=== PATIENT | male | born 1930 | race Caucasian/White ===

== ENCOUNTER 2017-07-05 16:51 | Inpatient (IN) | payer MEDICARE, OTHER ==
[2017-07-05 18:10] LABS: #Basophils 0.1 thou/uL (0.0-0.2); #Eosinphils 0.1 thou/uL (0.0-0.7); #Lymphocytes 1.1 thou/uL (1.20-3.40); #Monocytes 0.8 thou/uL (0.11-0.59); #Neutrophils 3.7 thou/uL (1.40-6.50); %Basophils 1.3 % (0.0-1.0); %Eosinophils 1.8 % (0.0-10.0); %Lymphocytes 18.5 % (21.0-51.0); %Monocytes 13.5 % (0.0-10.0); %Neutrophils 64.9 % (42.0-75.0); Hemoglobin 13.4 g/dL (14.0-18.0); Mean Corpuscular Hemoglobin 30.9 pg (27.0-31.0); Mean Corpuscular Volume 88.3 fl (80.0-94.0); Mean Platelet Volume 8.2 fL (7.4-10.4); Platelet Count 151 thou/uL (130-400); RBC Distribution Width 12.8 % (11.5-14.5); Red Blood Cell (RBC) Count 4.34 mill/uL (4.70-6.10); White Blood Cell (WBC) Count 5.7 thou/uL (4.8-10.8)
[2017-07-05 18:31] LABS: ALT (SGPT) 19 U/L (8-55); AST (SGOT) 32 U/L (5-34); Albumin 3.8 g/dL (3.4-4.8); Alkaline Phosphatase 93 U/L (40-150); Anion Gap 14 mmol/L (10-20); BUN (Urea Nitrogen) 60 mg/dL (8.4-25.7); Bilirubin, Total 1.5 mg/dL (0.2-1.2); Calc. Creatinine Clearance 0 mL/min (70-130); Calcium 8.8 mg/dL (7.8-10.44); Carbon Dioxide 35 mmol/L (23-31); Chloride 78 mmol/L (98-107); Estimated GFR-MDRD 39; Globulin 2.7 g/dL (2.4-3.5); Glucose 127 mg/dL (83-110); Potassium 3.7 mmol/L (3.5-5.1); Protein, Total 6.5 g/dL (5.8-8.1); Sodium 123 mmol/L (136-145)
[2017-07-05 19:45] LABS: Magnesium 2.2 mg/dL (1.6-2.6); Phosphorus 4.3 mg/dL (2.3-4.7)
[2017-07-05] MEDS ORDERED: Morphine 4 MG/ML VIAL ONE (19:53)
[2017-07-05] MEDS ORDERED: Ondansetron ODT 4 MG TAB ONE (19:53)
[2017-07-05 19:55] LABS: Troponin I 0.032 ng/mL (< 0.028)
--- NOTE | 2017-07-05 20:08 | RAD ---
CHEST TWO VIEW: 07/05/17 HISTORY: Questionable CHF. COMPARISON: Chest radiograph 07/14/16. FINDINGS: The lungs are clear. No pneumothorax or effusion. The cardiac silhouette and mediastinal contours are within normal limits. Dense calcifications in the aorta. Dorsal column stimulator is in place. Dural lead pacer is present. IMPRESSION: No evidence for acute decompensated CHF. POS: MARINO
[2017-07-05 20:22] LABS: Thyroid Stimulating Hormone 2.6801 uIU/mL (0.35-4.94)
[2017-07-05 20:28] LABS: Bilirubin Negative (Negative); Blood, Urine Negative (Negative); Clarity CLEAR (Clear); Glucose, Urine (Dipstick) Negative (Negative); Leukocyte Negative (Negative); Nitrite Negative (Negative); Protein, Urine (Dipstick) Negative (Neg-Trace); Specific Gravity, Urine 1.009 (1.002-1.036)
[2017-07-05 20:36] LABS: Osmolality, Urine 257 mOsm/kg (300-900)
[2017-07-05] MEDS ORDERED: Nitroglycerin 0.4 MG TAB (25 Tab Bottle) PO PRN (21:29)
[2017-07-05] MEDS ORDERED: Acetaminophen 325 MG TAB PO PRN (21:41)
[2017-07-05] MEDS ORDERED: Ondansetron HCl/PF 4 MG/2 ML Vial IVP PRN (21:41)
[2017-07-05] MEDS ORDERED: Ondansetron ODT 4 MG TAB PO PRN (21:41)
[2017-07-05] MEDS ORDERED: Senokot 8.6 MG TAB PO PRN (21:41)
[2017-07-05] MEDS ORDERED: Calcium Carbonate 500 MG ChewTAB PO PRN (21:41)
[2017-07-05] MEDS ORDERED: Dextrose 5% in Water 1,000 ML IV PRN (22:13)
[2017-07-05] MEDS ORDERED: Insulin Regular 300 UNITS/3 ML VIAL SC PRN (22:13)
[2017-07-05] MEDS ORDERED: Dextrose 50% Abboject 50 ML SYRINGE SLOW IVP PRN (22:13)
--- NOTE | 2017-07-05 22:13 | HP ---
DATE OF ADMISSION: 07/05/2017 PRIMARY CARE PHYSICIAN: [facility]. PRIMARY BILINGUAL INSIDE SALES REPRESENTATIVE: Dr. Chairez. CHIEF COMPLAINT: Generalized weakness/abnormal labs. HISTORY OF PRESENT ILLNESS: Patient is an 87-year-old male with coronary artery disease, congestive heart failure, hypertension, diabetes mellitus type 2, status post pacemaker in 2017 presented to the emergency room with generalized weakness and fatigue. Patient was evaluated by Dr. Contreras solis. He had routine labs that was consistent with hyponatremia with sodium of 119. He was advised to come to the emergency room for evaluation. Over the last two weeks, patient developed gradual worsening shortness of breath along with leg swell ing. He normally takes Lasix 40 mg twice a day. He called Dr. Chairez who increased his Lasix to 80 mg twice a day. Over the last 3 days, he has been taking Lasix 80 mg twice a day along with metolazo ne. His leg swelling has somewhat improved. However, over the last 24-48 hours, patient has been fe eling lightheaded, dizzy with generalized weakness. He had a near syncopal episode earlier today. H e had one episode of vomiting yesterday. PAST MEDICAL HISTORY: 1. Coronary artery disease, status post stent placement. 2. Ascending aortic aneurysm. 3. Status post pacemaker for sick sinus syndrome. 4. Diabetes mellitus, type 2. 5. Hypertension. 6. Hyperlipidemia. 7. Chronic pain syndrome. PAST SURGICAL HISTORY: 1. Pacemaker placement. 2. Colon cancer resection. 3. Prostate cancer resection. 4. Appendectomy. 5. Hip replacement. 6. Knee replacement. 7. Coronary stent placement. 8. Spine nerve stimulator. ALLERGIES: IBUPROFEN. CURRENT HOME MEDICATIONS: To be verified. Patient takes aspirin 81 mg daily, lisinopril, Lasix as d iscussed above, Lyrica, and hydrocodone. Other home medications to be confirmed. SOCIAL HISTORY: Patient currently lives at home. He is a former tobacco user, no alcohol or drug us e. He is FULL CODE, makes his own decision with the help of his family. FAMILY HISTORY: Negative for premature coronary artery disease. REVIEW OF SYSTEMS: The following complete review of systems was negative, unless otherwise mentioned in the HPI or below: Constitutional: Weight loss or gain, ability to conduct usual activities. Sk in: Rash, itching. Eyes: Double vision, pain. ENT/Mouth: Nose bleeding, neck stiffness, pain, te nderness. Cardiovascular: Palpitations, dyspnea on exertion, orthopnea. Respiratory: Shortness of breath, wheezing, cough, hemoptysis, fever, or night sweats. Gastrointestinal: Poor appetite, abdo lisa pain, heartburn, nausea, vomiting, constipation, or diarrhea. Genitourinary: Urgency, frequen cy, dysuria, nocturia. Musculoskeletal: Pain, swelling. Neurologic/Psychiatric: Anxiety, depressi on. Allergy/Immunologic: Skin rash, bleeding tendency. PHYSICAL EXAMINATION: VITAL SIGNS: Temperature 97.4 with respirations of 18, pulse rate of 72, blood pressure of 95/51 wit h O2 saturation 94% on room air. GENERAL: An 87-year-old male with generalized weakness. He denies any chest pain, shortness of alex th. HEENT: Head atraumatic, normocephalic. Sclerae anicteric. Moist mucous membranes. No oral lesion. NECK: Supple, no JVD appreciated. No carotid bruit. LUNGS: Essentially clear to auscultation bilaterally with scattered rales at bases. No wheezing or rhonchi. HEART: S1, S2 present. Regular rate and rhythm, 2/6 systolic murmur over the mitral area. ABDOMEN: Soft, nontender, bowel sounds present. EXTREMITIES: 3+ edema in bilateral lower extremities. No calf tenderness. SKIN: Warm and dry. LYMPH NODES: No palpable lymph nodes in the neck. PERIPHERAL VASCULAR: Radial pulses palpable bilaterally. MUSCULOSKELETAL: No joint swelling or tenderness. SKIN: Warm and dry. LYMPH NODES: No palpable lymph nodes in the neck. LABORATORY DATA: Sodium earlier today was 119 in the emergency room was 123, creatinine was 1.68 wit h BUN 60, total bilirubin 1.5. BNP was 202 with troponin of 0.032. Serum osmolarity 275. Urine osm olality 257. Urinalysis was negative. CBC showed WBC 5.7 with hemoglobin 13.4. Telemetry monitoring by my review showed paced rhythm. Chest x-ray by my review was negative for infiltrate or edema. IMPRESSION AND PLAN: 1. Hypotonic hyponatremia with acute kidney injury secondary to diuresis. 2. Elevated troponins secondary to congestive heart failure. 3. Abnormal liver function tests, probably secondary to passive hepatic congestion. Please note juan t patient has chronically elevated bilirubin. 4. Chronic pain syndrome. 5. Diabetes mellitus, type 2. 6. Hypertension. 7. Coronary artery disease, status post stent placement. 8. Chronic pain syndrome with spine nerve stimulator. 9. Hyperlipidemia. 10. Sick sinus syndrome, status post pacemaker. PLAN: Patient will be monitored on the telemetry unit. We will start him on gentle IV hydration. C ardiology, Dr. Chairez will be consulted. We will repeat the labs in the morning. We will hold Lasix for now. We will also hold lisinopril for now due to low blood pressure. Start him on sliding scal e. [employer] pacemaker interrogation. Plan of care was discussed with the patient and the family in detail. They stated understanding.
[2017-07-06 00:31] VITALS: BMI 34.0
[2017-07-06 00:53] LABS: Sodium, Urine 29 mmol/L (Not Available)
[2017-07-06] MEDS: Sodium Chloride 0.9% 1,000 ML IV SCH ×2 (01:35→22:10)
[2017-07-06 06:22] LABS: Anion Gap 12 mmol/L (10-20); BUN (Urea Nitrogen) 49 mg/dL (8.4-25.7); Calc. Creatinine Clearance 81 mL/min (70-130); Calcium 8.6 mg/dL (7.8-10.44); Carbon Dioxide 32 mmol/L (23-31); Chloride 85 mmol/L (98-107); Estimated GFR-MDRD 66; Glucose 133 mg/dL (83-110); Potassium 3.5 mmol/L (3.5-5.1); Sodium 125 mmol/L (136-145)
[2017-07-06 06:28] LABS: Troponin I 0.022 ng/mL (< 0.028)
[2017-07-06] MEDS ORDERED: Levofloxacin 500 mg/D5W 100 ml Premix Bag ONE (09:39)
[2017-07-06] MEDS ORDERED: metroNIDAZOLE 500 MG/100 ML BAG ONE (09:40)
[2017-07-06] MEDS ORDERED: Morphine 4 MG/ML VIAL ONE (10:29)
[2017-07-06 13:23] LABS: Anion Gap 9 mmol/L (10-20); BUN (Urea Nitrogen) 47 mg/dL (8.4-25.7); Calc. Creatinine Clearance 80 mL/min (70-130); Calcium 8.8 mg/dL (7.8-10.44); Carbon Dioxide 34 mmol/L (23-31); Chloride 89 mmol/L (98-107); Estimated GFR-MDRD 65; Glucose 116 mg/dL (83-110); Potassium 3.9 mmol/L (3.5-5.1); Sodium 128 mmol/L (136-145)
[2017-07-06] MEDS ORDERED: Aspirin 81 mg Enteric Coated Tablet PO SCH (17:30)
[2017-07-06] MEDS: Insulin Regular 300 UNITS/3 ML VIAL SC PRN (17:43)
[2017-07-06] MEDS ORDERED: Pregabalin 75 MG CAP PO SCH (21:00)
--- NOTE | 2017-07-06 22:29 | CON ---
DATE OF CONSULTATION: 07/06/2017 INDICATION FOR CONSULTATION: An 87-year-old gentleman with a history of congestive heart failure lori seaman I believe is diastolic dysfunction. He has had a pacemaker insertion. He was seen in the office yesterday. He has been complaining of lower extremity edema and his Lasix had previously been incre ased, but he had had some studies done yesterday, which showed that he was hyponatremic, the Lasix up d subsequently been decreased, and he was then sent to the emergency room due to the hyponatremia, so dium level was less than 120. He has been complaining of some lethargy, but no shortness of breath, but no chest pain. He is now being admitted for further evaluation and treatment. PAST MEDICAL HISTORY: Significant for diabetes, hypercholesterolemia, hypertension. He has had a he rnia repair. He had a pacemaker insertion knee replacement. He has had a left heart catheterization in 02/2016 with stent placement. He has had a hernia repair as well as a hip replacement. ALLERGIES: None. FAMILY HISTORY: Noncontributory. SOCIAL HISTORY: He lives with his family. He has no history of alcohol or tobacco abuse. He did sm eladio in the past. REVIEW OF SYSTEMS: He had no new HEENT complaints, visual changes or hearing loss. He has had no co mplaints of significant shortness of breath or dyspnea. He has had occasional palpitations, but no c hest pain, no nausea, vomiting or diarrhea. : No dysuria, polyuria, or hematuria. Musculoskeleta l: He has lower extremity edema. Neurologic: Only the fatigue, but no significant seizures or sync ope. PHYSICAL EXAMINATION: GENERAL: Reveals a well-developed, well-nourished gentleman, who is in no acute distress at this [facility]. He is alert and oriented. VITAL SIGNS: Blood pressure is 104/54. History in the emergency room, blood pressure was low as 99/ 55, heart rate is 70 and shows atrial pacing and ventricular sensing. Respiratory rate 15. He is af ebrile. HEENT: Reveals the head to be normocephalic, atraumatic. Carotid pulses are present. I did not hea r any bruits. CHEST: Clear to auscultation without rales, rhonchi, or wheezing. CARDIOVASCULAR: Exam reveals a regular rhythm at this time, monitoring shows he is pacing. CARDIOVASCULAR: Reveals a regular rhythm. No significant murmurs, heaves, thrills, bruits, or rubs are noted. ABDOMEN: Shows obesity with positive bowel sounds. No guarding or masses are noted. Femoral pulses are present. EXTREMITIES: Showed no clubbing or cyanosis. He had minimal lower extremity edema. I cannot palpat e pedal pulses. Popliteal pulses are barely palpable. He has discoloration of the left lateral lowe r leg. NEUROLOGIC: The patient appears to be intact. LABORATORY DATA: Shows hemoglobin 13.4, platelet count 151,000. His sodium on admission yesterday w as 123. This is now increased up to 128, blood sugar is 116. BNP was 202. Creatinine is 1.08 with a BUN of 47. Chest x-ray shows a pacemaker insertion without any significant abnormalities and no ev idence of congestive heart failure. IMPRESSION: 1. Elderly gentleman with a history of congestive heart failure in the past, which has been diastoli c in nature, who has been treated with diuretics and has now hyponatremic. We will need to fluid res trict the patient. The patient did admit that he has been drinking increased amounts of fluid while taking the Lasix that suspect he has diluted out after losing his electrolytes of urination and then replacing that with water. We will just need to fluid restrict him and I suspect the sodium will ret urn up to baseline and to normal. In the future, he will need to be volume restricted and will brittni nue low dose of diuretics. 2. History of pacemaker insertion. This was interrogated today. The function is normal. 3. History of diabetes. This will also need to be followed and will be dealt with by the primary ca re physicians. 4. History of hypertension, some good control at this on the low salt. 5. Chronic back pain. He would need to resume his medications. 6. History of coronary artery disease status post angioplasty and stent placement. This remains sta ble at this time. I will review his home medications and I will reinstate what he needs at this time . In the future, once his electrolytes and blood pressure stabilized, then we can most likely resume his previous medications.
--- NOTE | 2017-07-06 22:35 | PDOC.PN ---
- Subjective Encounter Start Date: 07/06/17 Encounter Start Time: 17:30 Patient seen and examined for Hyponatremia. No new complaints. No overnight events - Objective Resuscitation Status: Resuscitation Status FULL:Full Resuscitation MAR Reviewed: Yes Vital Signs & Weight: Vital Signs (12 hours) Temp Pulse Resp BP BP Pulse Ox 07/06/17 20:28 98 F 71 16 96 07/06/17 20:00 98 F 71 16 116/68 96 07/06/17 16:00 97.9 F 70 20 141/60 H 97 07/06/17 12:00 97.7 F 67 20 126/60 97 Weight Weight 250 lb 12.8 oz I&O: 07/05/17 07/06/17 07/07/17 06:59 06:59 06:59 Intake Total 260 1450 Output Total 1625 450 Balance -1365 1000 Result Diagrams: 07/05/17 17:59 07/07/17 05:29 Additional Labs: Accuchecks 07/06/17 07/06/17 07/06/17 20:47 16:53 12:00 POC Glucose 265 H 173 H 139 H 07/06/17 06:18 POC Glucose 147 H EKG Reviewed by me: Yes (Tele paced) Phys Exam - Physical Examination Constitutional: NAD Neck: no JVD Respiratory: no wheezing, no rhonchi Scat rales at bases, Symmetrical, No accessory muscle use Cardiovascular: RRR, no rub no heaves/pulsations Gastrointestinal: soft, non-tender, no distention, positive bowel sounds Musculoskeletal: pulses present, edema present Neurological: non-focal, moves all 4 limbs Psychiatric: A&O x 3 Dx/Plan (1) Hyponatremia with decreased serum osmolality Code(s): E87.1 - HYPO-OSMOLALITY AND HYPONATREMIA Status: Acute Plan: DC IVF, Monitor soidium twice daily, Diuretics on hold Comment: improving (2) LARISA (acute kidney injury) Code(s): N17.9 - ACUTE KIDNEY FAILURE, UNSPECIFIED Status: Acute Plan: as above Comment: Renal function improving (3) Chronic diastolic heart failure Code(s): I50.32 - CHRONIC DIASTOLIC (CONGESTIVE) HEART FAILURE Status: Chronic (4) DM2 (diabetes mellitus, type 2) Status: Chronic Plan: Cont sliding scale with home meds (5) HTN (hypertension) Code(s): I10 - ESSENTIAL (PRIMARY) HYPERTENSION Status: Chronic Plan: Cont Lisinopril (6) CAD (coronary artery disease) Code(s): I25.10 - ATHSCL HEART DISEASE OF [place] CORONARY ARTERY W/O ANG PCTRS Status: Chronic Plan: Cont ASA and other meds as below (7) Other chronic problems Status: Chronic Comment: - Elevated troponins secondary to congestive heart failure. - Abnormal liver function tests, probably secondary to passive hepatic congestion. Please note that patient has chronically elevated bilirubin. - Chronic pain syndrome with spine nerve stimulator. - Hyperlipidemia. - Sick sinus syndrome, status post pacemaker. - Obesity BMI 32.2 - Plan DVT proph w/SCDs Review of Systems - Review of Systems Respiratory: negative: Cough, Dry, Shortness of Breath, Hemoptysis, SOB with Excertion, Pleuritic Pain, Sputum, Wheezing Cardiovascular: negative: chest pain, palpitations, orthopnea, paroxysmal nocturnal dyspnea, edema, light headedness, other - Medications/Allergies Allergies/Adverse Reactions: Allergies Allergy/AdvReac Type Severity Reaction Status Date / Time ibuprofen [From Motrin] Allergy Rash Verified 07/06/17 00:22 Medications: Current Medications Acetaminophen (Tylenol) 650 mg PO Q4H PRN PRN Reason: Headache/Fever or Pain Aspirin (Ecotrin) 81 mg PO DAILY ALLIE Atorvastatin Calcium (Lipitor) 40 mg PO DAILY ALLIE Calcium Carbonate (Tums) 1,000 mg PO Q4H PRN PRN Reason: Heartburn or Indigestion Dextrose/Water (Dextrose 50%) 25 gm SLOW IVP PRN PRN PRN Reason: Hypoglycemia Glucagon (Glucagon) 1 mg IM PRN PRN PRN Reason: Hypoglycemia Dextrose/Water (D5w) 1,000 mls @ 0 mls/hr IV .Q0M PRN; As Directed PRN Reason: Hypoglycemia Insulin Human Regular (Humulin R) 0 units SC .MILD SLIDING SCALE PRN PRN Reason: Mild Correctional Scale Last Admin: 07/06/17 17:43 Dose: 2 unit Insulin Human Regular (Humulin R) 0 units SC .BEDTIME SLIDING SC PRN PRN Reason: Bedtime Correctional Scale Last Admin: 07/06/17 21:32 Dose: 3 unit Lisinopril (Zestril) 10 mg PO DAILY ALLIE Nateglinide (Starlix) 120 mg PO TID-WM ALLIE Nitroglycerin (Nitrostat) 0.4 mg PO Q5MIN PRN PRN Reason: Chest Pain Non-Formulary Medication (Metformin Hcl [Metformin Hcl]) 1,000 mg PO BID [facility] Ondansetron HCl (Zofran Odt) 4 mg PO Q6H PRN PRN Reason: Nausea/Vomiting Ondansetron HCl (Zofran) 4 mg IVP Q6H PRN PRN Reason: Nausea/Vomiting Pregabalin (Lyrica) 300 mg PO QPM [facility] Last Admin: 07/06/17 20:27 Dose: 300 mg Senna (Senokot) 2 tab PO HSPRN PRN PRN Reason: Constipation Sodium Chloride (Flush - Normal Saline) 10 ml IVF Q12HR [facility] Last Admin: 07/06/17 20:28 Dose: 10 ml Sodium Chloride (Flush - Normal Saline) 10 ml IVF PRN PRN PRN Reason: Saline Flush
[2017-07-07 07:10] LABS: Chloride 92 mmol/L (98-107); Potassium 3.6 mmol/L (3.5-5.1); Sodium 133 mmol/L (136-145)
[2017-07-07 07:11] LABS: Calcium 9.3 mg/dL (7.8-10.44); Glucose 139 mg/dL (83-110)
[2017-07-07 07:13] LABS: Anion Gap 12 mmol/L (10-20); Carbon Dioxide 33 mmol/L (23-31)
[2017-07-07 07:15] LABS: BUN (Urea Nitrogen) 30 mg/dL (8.4-25.7); Calc. Creatinine Clearance 98 mL/min (70-130); Estimated GFR-MDRD 87
[2017-07-07] MEDS ORDERED: metFORMIN 500 MG TAB PO SCH (08:00)
[2017-07-07] MEDS ORDERED: Atorvastatin Calcium 40 MG TAB PO SCH (09:00)
[2017-07-07] MEDS ORDERED: Aspirin 81 mg Enteric Coated Tablet PO SCH (09:00)
[2017-07-07] MEDS ORDERED: Lisinopril 20 MG TAB PO SCH (09:00)
[2017-07-07] MEDS ORDERED: Lisinopril 10 MG TAB PO SCH (09:00)
[2017-07-07] MEDS: Nateglinide 120 MG TAB PO SCH ×2 (09:27→12:12)
[2017-07-07] MEDS: Insulin Regular 300 UNITS/3 ML VIAL SC PRN (12:12)
--- NOTE | 2017-07-07 14:59 | PDOC.CTH ---
Cardiology Progress Note - Subjective The pt seen and examined. No overnight events. No cardiac complaints. Fluid restriction education given to the pt and family. - Objective Vital Signs Temp Pulse Resp BP BP BP Pulse Ox 07/07/17 09:26 145/67 H 07/07/17 08:20 97.6 F 70 18 145/67 H 99 07/07/17 04:00 97.8 F 83 16 121/70 93 L Weight 237 lb 6.4 oz 07/06/17 07/07/17 07/08/17 06:59 06:59 06:59 Intake Total 260 1720 Output Total 1625 1450 Balance -1365 270 - Physical Examination General/Neuro: alert & oriented x3 Neck: no JVD present Lungs: other: (diminished at bases) Heart: RRR Abdomen: soft Extremities: other: (1-2+ pitting BLE edema) - Telemetry Telemetry Rhythm: V paced - Labs Result Diagrams: 07/05/17 17:59 07/07/17 05:29 Troponin/CKMB Troponin I 0.022 ng/mL (< 0.028) 07/06/17 05:53 - Assessment/Plan 1. Acute on Chronic diastolic HF - stable; BLE swelling has improved. 2. Hyponatremia - improving with fluid restriction; 3. HTN - stable with current medication 4. Hx of PM placement - current interrogation showed normal 5. DM type 2 - managed by PCP 6. Chronic Afib - PM interrogation yesterday showed chronic Afib since 11/2016. He is on ASA 81mg daily due to Hx of multiple falls due to no sensation to RLE. MAR * From Cardiac standpoint, the pt is stable to d/c home. The pt can fly over 5 hours with compression stockings, ASA, and mobilize every 1 hr or more. * The pt will f/u with Dr Chairez within 2-4 wks. Review of Systems - Review of Systems Constitutional: reports: no symptoms reported EENTM: reports: no symptoms reported Respiratory: reports: no symptoms reported Cardiac (ROS): reports: no symptoms reported ABD/GI: reports: no symptoms reported : reports: no symptoms reported Musculoskeletal: reports: no symptoms reported
[2017-07-07 19:56] VITALS: BP 144/64; TEMP 97.6
--- NOTE | 2017-07-08 10:29 | DIS ---
DATE OF DISCHARGE: 07/07/2017 DISCHARGE DISPOSITION: Home. FOLLOWUP: 1. Follow up with primary care physician at [facility] after 1 week. 2. Follow up with cardiology, Dr. Chairez next week. ALLERGIES: Patient is allergic to IBUPROFEN. Patient was seen and examined on the day of discharge. Denies any new complaints, no chest pain, michelle rtness of breath, palpitations. BRIEF HOSPITAL COURSE: Patient is an 87-year-old male with coronary artery disease, chronic diastoli c heart failure, hypertension, and diabetes mellitus type 2, presented with generalized weakness. He was found to have a sodium of 119 on routine labs. Please refer to the history and physical dated 0 07/05/2017 for further details. The patient was admitted to the hospital with a diagnosis of generalized weakness with hypotonic hypo natremia with acute kidney injury. He was started on gentle IV hydration that was later discontinued . His creatinine has improved to 0.84 from 1.68. His sodium has improved to 133 from 119. Patient was evaluated by cardiology, Dr. Fernández as well. No changes in his medications were made. Patient mercedez ears stable for discharge. FINAL DIAGNOSES: 1. Hypotonic hyponatremia secondary to diuretics (Lasix and metolazone). 2. Acute kidney injury, resolved. 3. Diabetes mellitus, type 2. 4. Chronic diastolic heart failure. 5. Hypertension. 6. Coronary artery disease. 7. Chronic kidney disease, stage 2. 8. Chronic pain syndrome. 9. Final nerve stimulator. 10. Hyperlipidemia. 11. Sick sinus syndrome, status post pacemaker. 12. Obesity with a BMI of 32.2. Plan of care was discussed with the patient in detail. He stated understanding.
== END 2017-07-07 16:45 | disposition home or self-care (01) | DRG 683 ==
LOC: ERS 16:51 → 2NO 19:30
PROVIDERS: ADMIT Internal Medicine; ATTEND Internal Medicine
DX: N17.9 Acute kidney failure, unspecified (principal); E87.1 Hypo-osmolality and hyponatremia; I50.32 Chronic diastolic (congestive) heart failure; I25.10 Atherosclerotic heart disease of native coronary artery without angina pectoris; I11.0 Hypertensive heart disease with heart failure; E11.9 Type 2 diabetes mellitus without complications; Z95.0 Presence of cardiac pacemaker; T50.2X5A Adverse effect of carbonic-anhydrase inhibitors, benzothiadiazides and other diuretics, initial encounter; K76.1 Chronic passive congestion of liver; E66.9 Obesity, unspecified; Z68.32 Body mass index [BMI] 32.0-32.9, adult
CPT/HCPCS: 36415; 36416; 71046; 80048; 80061; 81003; 82533; 83735; 83880; 83930; 83935; 84100; 84300; 84443; 84484; 85025; 93005; 93798; 94760; A4216; J1815; J1956; J2270; Q0162

== ENCOUNTER 2017-07-20 15:27 | Emergency (ER) | payer MEDICARE, OTHER ==
[2017-07-20 16:13] LABS: #Eosinphils 0.2 thou/uL (0.0-0.7); #Lymphocytes 0.9 thou/uL (1.20-3.40); #Monocytes 0.6 thou/uL (0.11-0.59); #Neutrophils 3.9 thou/uL (1.40-6.50); %Basophils 0.3 % (0.0-1.0); %Eosinophils 4.2 % (0.0-10.0); %Lymphocytes 16.6 % (21.0-51.0); %Monocytes 10.1 % (0.0-10.0); %Neutrophils 68.7 % (42.0-75.0); Hemoglobin 13.3 g/dL (14.0-18.0); Mean Corpuscular HGB CONC 34.7 g/dL (32.0-36.0); Mean Corpuscular Hemoglobin 31.7 pg (27.0-31.0); Mean Corpuscular Volume 91.2 fl (80.0-94.0); Platelet Count 136 thou/uL (130-400); RBC Distribution Width 13.2 % (11.5-14.5); Red Blood Cell (RBC) Count 4.19 mill/uL (4.70-6.10); White Blood Cell (WBC) Count 5.6 thou/uL (4.8-10.8)
--- NOTE | 2017-07-20 16:33 | RAD ---
SEMIUPRIGHT PORTABLE CHEST ONE VIEW: 07/20/17 HISTORY: 87-year-old male with history of altered mental status, weakness and low blood pressure. COMPARISON: 07/05/17. Left ICD. Dorsal column stimulator leads overlie the thoracic spine. Less than optimal inspiration wi th some increased markings in the lower lung zones when compared to the prior 07/05/17 study probably related to less inspiratory effort. No overt confluent process. No pleural effusion. It would be diff icult to totally exclude the possibility of some mild vascular congestion acutely. IMPRESSION: Less inspiration with some minimal increased markings in the inferior perihilar regions felt to be mo re likely related to poor inspiration although some mild acute vascular congestion is a consideration . POS: OFF
[2017-07-20 16:36] LABS: ALT (SGPT) 16 U/L (8-55); AST (SGOT) 22 U/L (5-34); Albumin 3.9 g/dL (3.4-4.8); Alkaline Phosphatase 92 U/L (40-150); Anion Gap 14 mmol/L (10-20); BUN (Urea Nitrogen) 35 mg/dL (8.4-25.7); Bilirubin, Total 1.3 mg/dL (0.2-1.2); CK (CPK) 87 U/L (30-200); Calc. Creatinine Clearance 0 mL/min (70-130); Calcium 9.4 mg/dL (7.8-10.44); Carbon Dioxide 28 mmol/L (23-31); Chloride 99 mmol/L (98-107); Estimated GFR-MDRD 51; Globulin 3.1 g/dL (2.4-3.5); Glucose 189 mg/dL (83-110); Lipase 52 U/L (8-78); Potassium 4.1 mmol/L (3.5-5.1); Sodium 137 mmol/L (136-145)
[2017-07-20 16:43] LABS: CKMB 3.7 ng/mL (0-6.6); Troponin I Less than 0.010 ng/mL (< 0.028)
--- NOTE | 2017-07-20 17:48 | ULT ---
BILATERAL LOWER EXTREMITY VENOUS DUPLEX ULTRASOUND INCLUDING COLOR AND SPECTRAL DOPPLER IMAGIN07/20/17 HISTORY: 87-year-old male with bilateral lower extremity pain and edema. Exam performed from groin to ankle including visualized greater saphenous, common femoral, superficia l femoral, profunda femoral, popliteal, trifurcation, and posterior tibial vein regions. There is pha sic flow with normal compressibility and normal augmentation. No intraluminal thrombus. IMPRESSION: No evidence for deep venous thrombosis. POS: RRE
== END 2017-07-20 18:07 | disposition home or self-care (01) ==
LOC: ERS 15:27
DX: R53.1 Weakness (principal); E11.9 Type 2 diabetes mellitus without complications; I10 Essential (primary) hypertension; I25.2 Old myocardial infarction; Z87.891 Personal history of nicotine dependence
CPT/HCPCS: 36415; 36416; 71045; 80053; 82553; 83605; 83690; 83880; 84484; 85025; 87040; 93005; 93970; 96360

== ENCOUNTER 2018-06-10 10:09 | Outpatient (CLI) | payer MEDICARE, OTHER ==
--- NOTE | 2018-06-10 11:24 | CT ---
EXAM: CT Chest WO Con PROVIDED CLINICAL HISTORY: Follow up pulmonary nodule. COMPARISON: 01/04/2017. FINDINGS: The previously described left upper lobe pulmonary nodule slightly irregular margins is not visualize d on this examination. There is a stable tiny proximal 4 mm pleural-based nodular density at the left anterolateral aspect left upper lobe (image 64, series 3) as well as a stable pleural-based nodu lar density along the major fissure on the right measuring 8 mm (image 98, series 3). These nodular densities are also similar to study on 07/14/2016. No new or additional pulmonary nodule is seen in th e lungs bilaterally. There are mild chronic lung changes with subpleural linear densities posterior right lower lobe. No c onsolidation or pleural fluid is seen. Dual-lead left subclavian cardiac pacemaker device remains in place. Dorsal column stimulator device is also again seen with leads in the central canal of the thoracic spine stable from prior study. Vascular calcifications are again seen in the coronary arteries and involving the thoracic aorta. Lack of intravenous contrast limits evaluation of mediastinal structures, but no definite enlarged ly mph nodes are seen. Gallbladder calculi are visualized. Hypodense lesion in the caudate lobe of the liver as well as in t he left hepatic lobe are again seen and stable each of which demonstrates attenuation coefficients suggestive of hepatic cysts on this exam as well as on prior study. Metallic densities are seen within the subcutaneous adipose layer posterior upper abdomen. Degenerative changes are again seen spine. IMPRESSION: 1. Previously seen pulmonary nodule in the left upper lobe is no longer seen. There is a stable tiny pleural-based 4 mm nodular density in the anterolateral left upper lobe as well as stable pleural-based nodular density along the major fissure on the right. No new pulmonary nodule or mass i s seen. 2. Dense atherosclerotic vascular calcifications with prominent calcifications of the mitral valve an nulus. 3. Cholelithiasis. 4. Hepatic cysts.
== END 2018-06-10 10:10 | disposition home or self-care (01) ==
LOC: BICCT 10:09
PROVIDERS: ATTEND Internal Medicine Critical Care Medicine
DX: R91.1 Solitary pulmonary nodule (principal); I34.8 Other nonrheumatic mitral valve disorders; K80.20 Calculus of gallbladder without cholecystitis without obstruction; K76.89 Other specified diseases of liver
CPT/HCPCS: 71250

== ENCOUNTER 2020-07-02 08:41 | Day surgery (SDC) | payer MEDICARE, OTHER ==
[2020-07-01 15:38] VITALS: BMI 31.1
[2020-07-02] MEDS ORDERED: ePHEDrine Sulfate 50 MG/10 ML VIAL ONE (10:42)
[2020-07-02] MEDS ORDERED: PHENYLEPHRINE-NS 100 MCG/ML 10 ML SYRINGE ONE (10:43)
[2020-07-02] MEDS ORDERED: PROPOFOL 40 ML ONE (10:43)
== END 2020-07-02 13:28 | disposition home or self-care (01) ==
LOC: CCL 08:41
PROVIDERS: ATTEND Internal Medicine Cardiovascular Disease
PROC: B24BZZ4 Ultrasonography of Heart with Aorta, Transesophageal (ICD-10-PCS; principal; 2020-07-02)
DX: I35.2 Nonrheumatic aortic (valve) stenosis with insufficiency (principal); I08.1 Rheumatic disorders of both mitral and tricuspid valves; I37.1 Nonrheumatic pulmonary valve insufficiency; I70.0 Atherosclerosis of aorta; I11.0 Hypertensive heart disease with heart failure; I50.9 Heart failure, unspecified; I25.10 Atherosclerotic heart disease of native coronary artery without angina pectoris; I48.0 Paroxysmal atrial fibrillation; E78.00 Pure hypercholesterolemia, unspecified; E11.9 Type 2 diabetes mellitus without complications; G47.30 Sleep apnea, unspecified; Z87.891 Personal history of nicotine dependence; Z79.84 Long term (current) use of oral hypoglycemic drugs; Z79.899 Other long term (current) drug therapy; Z88.6 Allergy status to analgesic agent; Z95.0 Presence of cardiac pacemaker; Z95.5 Presence of coronary angioplasty implant and graft
CPT/HCPCS: 93312; J2704